=== PATIENT | female | born 1980 | race Caucasian/White ===

== ENCOUNTER 2017-12-09 10:23 | Emergency (ER) | payer MEDICAID ==
[~2017-12-09] VITALS: Ht 5535.5 cm; Wt 87.0 kg
[~2017-12-09 10:23] MED LIST: DEXL30CA3 PO; ONDA8TAB6 PO
[2017-12-09] MEDS ORDERED: ketorolac trometh inj. 60 MG/2 ML VIAL IM ONE (11:30)
[2017-12-09] MEDS ORDERED: diazepam 5mg tablet PO ONE (11:30)
[2017-12-09] MEDS ORDERED: METH-360 PO (11:32)
[2017-12-09] MEDS ORDERED: NAPR-56 PO (11:32)
[2017-12-09 11:47] VITALS: BP 130/78
== END 2017-12-09 11:49 | disposition home or self-care (01) ==
LOC: ER 10:23
DX: M54.40 Lumbago with sciatica, unspecified side (principal); K21.9 Gastro-esophageal reflux disease without esophagitis; Z88.1 Allergy status to other antibiotic agents; Z79.899 Other long term (current) drug therapy
CPT/HCPCS: 96372; 99283; J1885

== ENCOUNTER 2018-04-08 21:26 | Emergency (ER) | payer MEDICAID ==
[~2018-04-08] VITALS: Ht 578.2 cm; Wt 82.7 kg
[~2018-04-08 21:26] MED LIST changes: +METH-360 PO
[2018-04-08] MEDS ORDERED: IBUP-1985 PO (22:55)
[2018-04-08 23:20] VITALS: BP 120/71
== END 2018-04-08 23:22 | disposition home or self-care (01) ==
LOC: ER 21:26
DX: S93.602A Unspecified sprain of left foot, initial encounter (principal); K21.9 Gastro-esophageal reflux disease without esophagitis; Z88.8 Allergy status to other drugs, medicaments and biological substances; Z79.899 Other long term (current) drug therapy; X50.1XXA Overexertion from prolonged static or awkward postures, initial encounter; Y93.89 Activity, other specified; Y92.89 Other specified places as the place of occurrence of the external cause; Y99.8 Other external cause status
CPT/HCPCS: 29515; 73630; 99284

== ENCOUNTER 2019-09-08 09:59 | Emergency (ER) | payer MEDICAID ==
[~2019-09-08] VITALS: Ht 167.6 cm; Wt 82.1 kg
[~2019-09-08 09:59] MED LIST changes: +IBUP-1985 PO
[2019-09-08 10:05] VITALS: BP 127/77
--- NOTE | 2019-09-08 10:45 | NUR ---
Patient ambulated to restroom with steady gait. urine sample collected and sent to lab.
[2019-09-08] MEDS ORDERED: ketorolac tromethamine 15mg/ml inj. IM ONE (11:15)
[2019-09-08] MEDS ORDERED: NAPR-56 PO (11:18)
[2019-09-08] MEDS ORDERED: METH-360 PO (11:18)
== END 2019-09-08 11:30 | disposition home or self-care (01) ==
LOC: ER 09:59
DX: M54.42 Lumbago with sciatica, left side (principal); K21.9 Gastro-esophageal reflux disease without esophagitis; Z88.1 Allergy status to other antibiotic agents; Z79.899 Other long term (current) drug therapy
CPT/HCPCS: 96372; 99283; J1885

== ENCOUNTER 2021-08-12 08:18 | Emergency (ER) | payer MEDICAID ==
[~2021-08-12] VITALS: Ht 167.6 cm; Wt 58.6 kg
[2021-08-12 08:27] VITALS: BP 134/75
== END 2021-08-12 11:21 | disposition home or self-care (01) ==
LOC: ER 08:19
DX: M79.671 Pain in right foot (principal); K21.9 Gastro-esophageal reflux disease without esophagitis; Z88.1 Allergy status to other antibiotic agents; Z79.899 Other long term (current) drug therapy; W22.03XA Walked into furniture, initial encounter; Y93.89 Activity, other specified; Y92.89 Other specified places as the place of occurrence of the external cause; Y99.8 Other external cause status
CPT/HCPCS: 73630; 99283

== ENCOUNTER 2022-03-29 10:31 | Emergency (ER) | payer MEDICAID ==
[~2022-03-29] VITALS: Ht 167.6 cm; Wt 68.0 kg
[2022-03-29 11:08] VITALS: BP 111/66
== END 2022-03-29 11:30 | disposition home or self-care (01) ==
LOC: ER 10:33
DX: O9A.212 Injury, poisoning and certain other consequences of external causes complicating pregnancy, second trimester (principal); S39.012A Strain of muscle, fascia and tendon of lower back, initial encounter; O26.892 Other specified pregnancy related conditions, second trimester; K21.9 Gastro-esophageal reflux disease without esophagitis; Z72.89 Other problems related to lifestyle; Z88.1 Allergy status to other antibiotic agents; Z79.899 Other long term (current) drug therapy; Z3A.19 19 weeks gestation of pregnancy; V19.9XXA Pedal cyclist (driver) (passenger) injured in unspecified traffic accident, initial encounter; Y93.89 Activity, other specified; Y92.89 Other specified places as the place of occurrence of the external cause; Y99.8 Other external cause status
CPT/HCPCS: 99284

== ENCOUNTER 2022-04-07 02:01 | Emergency (ER) | payer MEDICAID ==
[~2022-04-07] VITALS: Ht 167.6 cm; Wt 68.2 kg
[2022-04-07] MEDS ORDERED: AMOX-117 PO (03:19)
[2022-04-07] MEDS ORDERED: IBUP-1984 PO (03:19)
[2022-04-07] MEDS ORDERED: amox tr/potassium clavulanate 875/125mg TAB PO ONE (03:20)
[2022-04-07] MEDS ORDERED: ibuprofen tablet 400 MG TABLET PO ONE (03:20)
[2022-04-07] MEDS ORDERED: acetaminophen 325mg tablet PO ONE (03:20)
[2022-04-07 03:30] VITALS: BP 128/82
== END 2022-04-07 03:31 | disposition home or self-care (01) ==
LOC: ER 02:02
DX: O26.892 Other specified pregnancy related conditions, second trimester (principal); K04.7 Periapical abscess without sinus; K02.9 Dental caries, unspecified; K21.9 Gastro-esophageal reflux disease without esophagitis; F17.200 Nicotine dependence, unspecified, uncomplicated; Z72.89 Other problems related to lifestyle; Z88.1 Allergy status to other antibiotic agents; Z79.899 Other long term (current) drug therapy; Z3A.20 20 weeks gestation of pregnancy
CPT/HCPCS: 99284

== ENCOUNTER 2022-04-10 22:46 | Emergency (ER) | payer MEDICAID ==
[~2022-04-10] VITALS: Ht 167.6 cm; Wt 68.6 kg
[~2022-04-10 22:46] MED LIST changes: +AMOX-117 PO; +IBUP-1984 PO
[2022-04-10 23:08] VITALS: BP 99/66
[2022-04-11] LABS: URINE HCG POSITIVE (NEG)
[2022-04-11 00:02] LABS: CLARITY,URINE CLEAR (Clear); COLOR,URINE YELLOW (Yellow); GLUCOSE, URINE NEGATIVE (Neg); KETONES,URINE NEGATIVE (Neg); LEUKOCYTE ESTERASE ,URINE NEGATIVE (Neg); NITRITES, URINE NEGATIVE (Neg); OCCULT BLOOD,URINE NEGATIVE (Neg); PROTEIN,URINE NEGATIVE (Neg); UROBILINOGEN,URINE 0.2 E.U/dL (0.2-1.0)
[2022-04-11 00:05] LABS: UA COLLECTION TYPE CLN CATCH MIDSTREAM
== END 2022-04-11 02:10 | disposition left against medical advice (07) ==
LOC: ER 22:47
DX: M79.10 Myalgia, unspecified site (principal); Z53.21 Procedure and treatment not carried out due to patient leaving prior to being seen by health care provider
CPT/HCPCS: 81003; 81025

== ENCOUNTER 2024-07-11 12:29 | Emergency (ER) | payer MEDICAID ==
[~2024-07-11] VITALS: Ht 167.6 cm; Wt 75.0 kg
[~2024-07-11 12:29] MED LIST changes: -AMOX-117 PO; -IBUP-1984 PO
[2024-07-11] MEDS ORDERED: PSEU120T56 PO (16:06)
[2024-07-11] MEDS ORDERED: NEOM10SO7 RIGHT EAR (16:06)
[2024-07-11] MEDS ORDERED: AMOX500C2 PO (16:06)
[2024-07-11 16:31] VITALS: BP 122/74; PULSE 78; RESP 16; TEMP 98.1; O2SAT 99
== END 2024-07-11 16:32 | disposition home or self-care (01) ==
LOC: ER 12:29
DX: H60.91 Unspecified otitis externa, right ear (principal); H66.91 Otitis media, unspecified, right ear; K21.9 Gastro-esophageal reflux disease without esophagitis; Z88.1 Allergy status to other antibiotic agents; Z79.1 Long term (current) use of non-steroidal anti-inflammatories (NSAID); Z79.2 Long term (current) use of antibiotics; Z79.899 Other long term (current) drug therapy
CPT/HCPCS: 99283